=== PATIENT | female | born 1975 | race Caucasian/White ===

== ENCOUNTER → 2016-10-15 | Outpatient (CLI) | payer OTHER ==
[~2016-10-15] MED LIST: BACTRIM DS 8001 TAB PO; OMNICEF 300MG300 MG PO
== END ==
LOC: MC.RAD 16:20
DX: Z12.31 Encounter for screening mammogram for malignant neoplasm of breast (principal)

== ENCOUNTER 2018-05-17 13:48 | Emergency (ER) | payer BC ==
[~2018-05-17] VITALS: Ht 170.2 cm; Wt 68.2 kg
[2018-05-17 14:01] VITALS: BP 144/98; TEMP 99.4
[2018-05-17 16:05] VITALS: PULSE 87
[2018-05-20] MEDS ORDERED: BACTRIM DS 8001 TAB PO (03:12)
[2018-05-20] MEDS ORDERED: OMNICEF 300MG300 MG PO (03:12)
== END 2018-05-17 16:07 | disposition home or self-care (01) ==
LOC: COL.ER 13:48
DX: L03.115 Cellulitis of right lower limb (principal)
CPT/HCPCS: A4216; J0690

== ENCOUNTER → 2021-12-05 | Outpatient (CLI) | payer BC | LOC: MC.RAD 10:55 | DX: N60.01 Solitary cyst of right breast (principal) ==